=== PATIENT | male | born 1985 | race Caucasian/White ===

== ENCOUNTER 2023-02-17 15:59 | Emergency (ER) | payer SELFPAY ==
[2023-02-17 16:03] VITALS: BP 111/71; PULSE 96; RESP 18; TEMP 36.8; O2SAT 98; BMI 25.8
[2023-02-17] MEDS: FLUORESCEIN SODIUM 1 MG STRIP OP (16:13)
[2023-02-17] MEDS: TOBRAMYCIN 0.3% OP SOL 100 DROP/5 ML BOTTLE OP (16:34)
--- NOTE | 2023-02-17 16:37 | ED.EYEPROB1 ---
HPI - Eye Problem General Chief complaint: Eye Problems Stated complaint: ITCHY RED EYE Time Seen by Provider: 02/17/23 16:04 Source: patient Mode of arrival: walk-in Limitations: no limitations History of Present Illness HPI Narrative: patient is a 37-year-old male who presents the emergency department for left eye itching, redness and pain that began yesterday after he believes he got something in his eye. He states he removed his contact but his eye feels irritated. He denies any metal exposure or direct injury to the eye. He states today his eye was swollen shut. He has had no double vision or loss of vision. No medications taken prior to arrival. Unknown last tetanus. Related Data Previous Rx's Medication Instructions Recorded diclofenac sodium 0.1 % eye drops 2 drp ophthalmic (eye) Q6H PRN eye 02/17/23 pain 2 days #2.5 mL hydroxyzine HCl 25 mg tablet 25 mg PO Q6H PRN itching #20 tabs 02/17/23 Allergies Allergy/AdvReac Type Severity Reaction Status Date / Time No Known Drug Allergies Allergy Verified 02/17/23 16:08 Review of Systems ROS Constitutional Denies: fever or chills Eyes Reports: blurry vision and eye discomfort Cardiovascular Denies: chest pain Respiratory Denies: shortness of breath or cough Gastrointestinal Denies: nausea or vomiting Musculoskeletal Denies: back pain Integumentary/Breast Denies: rash Neurological Denies: headache Exam Narrative Exam Narrative: Gen.: Awake, alert, in no distress Head: Normocephalic, atraumatic ENT: Moist mucous membranes, left eye is erythematous and injected at the conjunctiva with no visible foreign body noted. Normal extraocular motion, pupils were equal round and reactive to light, the patient had no pain with extraocular motion. The patient had Alcaine applied to the bilateral eyes, fluorescein dye was instilled. The patient had exam with Mcneil lamp that did not show evidence of uptake at the cornea. General irritation noted of the conjunctiva. The patient had no involvement over the pupil. There was evidence of conjunctival injection. The patient's eyelid was everted and there was no evidence of foreign body. The patient had no swelling of the upper/lower eyelid. No evidence of hyphema, dendritic lesion or Yury sign. No corneal ulcerations. No evidence of preseptal cellulitis or orbital cellulitis. Respiratory: No respiratory distress Extremities: Moves extremities equally Psych: Normal mood and affect Neuro: No focal neuro deficit Skin: Warm, dry, intact Constitutional Vital Signs, click to edit/add: Last Vital Signs Temp 98.3 F 02/17/23 16:03 Pulse 96 H 02/17/23 16:03 Resp 18 02/17/23 16:03 BP 111/71 02/17/23 16:03 Pulse Ox 98 02/17/23 16:03 O2 Del Method Room Air 02/17/23 16:03 Course Vital Signs Vital signs: Vital Signs Temperature 98.3 F 02/17/23 16:03 Pulse Rate 96 H 02/17/23 16:03 Respiratory Rate 18 02/17/23 16:03 Blood Pressure 111/71 02/17/23 16:03 Pulse Oximetry 98 02/17/23 16:03 Oxygen Delivery Method Room Air 02/17/23 16:03 Temperature 98.3 F 02/17/23 16:03 Pulse Rate 96 H 02/17/23 16:03 Respiratory Rate 18 02/17/23 16:03 Blood Pressure 111/71 02/17/23 16:03 Pulse Oximetry 98 02/17/23 16:03 Oxygen Delivery Method Room Air 02/17/23 16:03 MDM - Eye Problem MDM Narrative Medical decision making narrative: tetracaine, fluorescein used in the emergency department to stay in the patient's left eye and he was examined under Mcneil lamp with no evidence of corneal abrasion or retained foreign body. He is placed on tobramycin eyedrops with Voltaren eyedrops for comfort in addition antihistamines. He refused a tetanus shot in the emergency department. He is encouraged to follow-up with his eye doctor, not wear his contact lenses and return to the emergency department if symptoms change or worsen. Medical Records Attestation: I reviewed the patient's medical records. Discharge Plan Discharge Chief Complaint: Eye Problems Clinical Impression: Acute left eye pain, Conjunctivitis Patient Disposition: Home, Self-Care Time of Disposition Decision: 16:27 Condition: Good Prescriptions / Home Meds: New hydroxyzine HCl 25 mg tablet 25 mg PO Q6H PRN (Reason: itching) Qty: 20 0RF diclofenac sodium 0.1 % drops 2 drp ophthalmic (eye) Q6H PRN (Reason: eye pain) 2 Days Qty: 2.5 0RF Instructions: Eye Pain (ED), Conjunctivitis (ED) Additional Instructions: Tobramycin eye drops: 2 drops 4x per day for 5 days Stand Alone Forms: Portal Instructions Referrals: Physician,Non-Staff, MD [Primary Care Provider] - 1 week
== END 2023-02-17 16:44 | disposition home or self-care (01) ==
PROVIDERS: Emergency Provider Emergency Medicine
DX: H10.9 Unspecified conjunctivitis (principal); H57.12 Ocular pain, left eye
CPT/HCPCS: 99283